=== PATIENT | male | born 1985 | race Two or more races ===

== ENCOUNTER 2019-12-13 13:35 | Emergency (ER) | payer OTHER ==
[~2019-12-13] VITALS: Ht 172.7 cm; Wt 79.8 kg
[2019-12-13] MEDS ORDERED: SODIUM CHLORIDE FLUSH 10ML SYR IVF ONE (14:00)
[2019-12-13] MEDS ORDERED: CEFAZOLIN PMX 1GM/50ML 50 ML IVPB ONE (14:00)
[2019-12-13] MEDS ORDERED: DIPHTHERIA-TETANUS ADULT 0.5ML IM-VACC ONE (14:00)
[2019-12-13] MEDS ORDERED: MORPHINE SULFATE 4 MG/ML, 1ML ONE (14:06)
[2019-12-13] MEDS ORDERED: DIPH,PERTUSS(ACELL),TET VAC/PF 0.5 ML IM-VACC ONE (14:06)
[2019-12-13] MEDS ORDERED: CEFAZOLIN PMX 1GM/50ML 50 ML ONE (14:06)
[2019-12-13] MEDS ORDERED: MORPHINE SULFATE 4 MG/ML, 1ML IVPush ONE (14:30)
--- NOTE | 2019-12-13 14:30 | NUR ---
PT HAS DEEP LACERATION TO RIGHT INDEX FINGER TIP. PT WAS CUTTING MEAT AT JOB AND CUT FINGER AND MIDDLE KNUCKLE. VSS, MEDICATED PER ORDERS, TDAP, MORPHINE, ABX. PLAN FOR XR AND SUTURES
[2019-12-13] MEDS ORDERED: LIDOCAINE-MPF 1%, 5ML ONE ×2 (14:42→14:49)
[2019-12-13] MEDS ORDERED: LIDOCAINE-MPF 1%, 5ML INFIL ONE (15:00)
[2019-12-13 16:46] VITALS: BP 120/79
== END 2019-12-13 16:46 | disposition home or self-care (01) ==
LOC: ED 16:20
DX: S62.630B Displaced fracture of distal phalanx of right index finger, initial encounter for open fracture (principal); S61.310A Laceration without foreign body of right index finger with damage to nail, initial encounter; W45.8XXA Other foreign body or object entering through skin, initial encounter; Y93.89 Activity, other specified; Y92.89 Other specified places as the place of occurrence of the external cause; Y99.8 Other external cause status
CPT/HCPCS: 12042; 73130; 90471; 90714; 96374; 96375; 99284; J0690; J2270